=== PATIENT | male | born 1995 | race African-American/Black ===

== ENCOUNTER 2021-11-29 14:43 | Emergency (ER) | payer BC, OTHER ==
[2021-11-29] MEDS ORDERED: CYCLOBENZAPRINE 10 MG TAB ONE (15:42)
[2021-11-29] MEDS ORDERED: IBUPROFEN 400 MG TAB ONE (15:42)
--- NOTE | 2021-11-29 16:28 | RAD REPORT ---
EXAM DESCRIPTION: Tony Single View11/29/2021 4:03 pm CLINICAL HISTORY: Chest pain COMPARISON: none FINDINGS: Patient is in a poor degree of inspiration The lungs appear clear of acute infiltrate. The heart is normal size IMPRESSION: No acute abnormalities displayed
--- NOTE | 2021-11-29 16:50 | ER ---
Nurse's Notes [facility] Name: Herb Bang Age: 26 yrs Sex: Male : 1995 Arrival Date: 11/29/2021 Time: 14:45 Bed Treatment Private MD: Alex Boswell Diagnosis: Strain of muscle and tendon of unspecified wall of thorax Presentation: 11/29 14:58 Chief complaint: Patient states: "I WAS LIFTING WEIGHTS AND THINK I PULLED SOMETHING IN [facility] MY RIGHT CHEST AN HOUR AGO". Coronavirus screen: Vaccine status: Patient reports receiving the 2nd dose of the covid vaccine. Client denies travel out of the [place] in the last 14 days. At this time, the client does not indicate any symptoms associated with coronavirus-19. Ebola Screen: Patient negative for fever greater than or equal to 101.5 degrees Fahrenheit, and additional compatible Ebola Virus Disease symptoms. Initial Sepsis Screen: Does the patient meet any 2 criteria? No. Patient's initial sepsis screen is negative. Does the patient have a suspected source of infection? No. Patient's initial sepsis screen is negative. Risk Assessment: Do you want to hurt yourself or someone else? Patient reports no desire to harm self or others. Onset of symptoms was November 29, 2021 at 12:00. 14:58 Method Of Arrival: Ambulatory [facility] 14:58 Acuity: OBDULIA 4 [facility] Triage Assessment: 15:00 General: Appears uncomfortable, Behavior is calm, cooperative, appropriate for age. [facility] Pain: Complains of pain in anterior aspect of right upper chest and right breast Pain does not radiate. Pain currently is 9 out of 10 on a pain scale. Quality of pain is described as pressure, Pain began 1 hour ago. Historical: - Allergies: 15:00 NKDA; 1 - Home Meds: 15:00 None [Active]; bh1 - PMHx: 15:00 None; bh1 - PSHx: 15:00 None; 1 - Immunization history:: Adult Immunizations up to date. - Social history:: Smoking status: Patient denies any tobacco usage or history of. Screenin:37 Abuse screen: Denies threats or abuse. Denies injuries from another. Nutritional jg9 screening: No deficits noted. Tuberculosis screening: No symptoms or risk factors identified. Fall Risk None identified. Assessment: 15:37 Reassessment: No changes from previously documented assessment. Patient and/or family jg9 updated on plan of care and expected duration. Pain level reassessed. Patient is alert, oriented x 3, equal unlabored respirations, skin warm/dry/pink. 17:00 Reassessment: No changes from previously documented assessment. Patient and/or family jg9 updated on plan of care and expected duration. Pain level reassessed. Patient is alert, oriented x 3, equal unlabored respirations, skin warm/dry/pink. Vital Signs: 14:58 BP 134 / 89; Pulse 95; Resp 18; Temp 97.4(T); Pulse Ox 99% on R/A; Weight 117.93 kg; 1 Height 5 ft. 7 in. (170.18 cm); Pain 9/10; 17:00 BP 140 / 90; Pulse 97; Resp 16; Pulse Ox 99% on R/A; Pain 7/10; jg9 14:58 Body Mass Index 40.72 (117.93 kg, 170.18 cm) [facility] ED Course: 14:45 Patient arrived in ED. as 14:45 Alex Boswell MD is Private Physician. as 14:57 Cora Jean-Baptiste F[facility]-C [facility] kb 14:57 Juan Carlos Michaels MD is Attending Physician. kb 14:59 Triage completed. 1 15:01 Arm band placed on left wrist. 1 15:38 Patient has correct armband on for positive identification. Bed in low position. Call jg9 light in reach. 16:05 Chest Single View XRAY In Process Unspecified. EDMS 17:00 No apparent distress. Resting quietly. Awaiting radiology results. jg9 17:14 Camille Lobato, RN is Primary Nurse. jg9 17:15 No provider procedures requiring assistance completed. jg9 17:16 Patient did not have IV access during this emergency room visit. jg9 Administered Medications: 15:37 Drug: Ibuprofen 800 mg Route: PO; jg9 16:30 Follow up: Response: No adverse reaction; Pain is unchanged, physician notified jg9 15:37 Drug: Flexeril (cyclobenzaprine) 10 mg Route: PO; jg9 16:30 Follow up: Response: No adverse reaction; Pain is unchanged, physician notified jg9 Medication: 17:16 VIS not applicable for this client. jg9 Outcome: 16:50 Discharge ordered by MD. bernal 17:16 Discharged to home ambulatory. jg9 17:16 Condition: stable 17:16 Discharge instructions given to patient, Instructed on discharge instructions, follow up and referral plans. Demonstrated understanding of instructions, follow-up care, medications, Prescriptions given X 2. 17:16 Patient left the ED. jg9 Signatures: Dispatcher [employer] EDKS Cora Jean-Baptiste, SHANK PAPERER-C SHANK PAPERER-Nilda Frank Jennifer, RN RN jg9 Rukhsana Low RN RN bh1
--- NOTE | 2021-11-29 16:50 | EDPHYS ---
Physician Documentation [facility] Name: Herb Bang Age: 26 yrs Sex: Male : 1995 Arrival Date: 11/29/2021 Time: 14:45 Bed Treatment Private MD: Alex Boswell ED Physician Juan Carlos Michaels HPI: 11/29 20:18 This 26 yrs old Black Male presents to ER via Ambulatory with complaints of Shoulder kb Pain. 20:18 Context: The problem was sustained at home. Onset: The symptoms/episode began/occurred kb today. Modifying factors: the symptoms are alleviated by nothing. The symptoms are aggravated by movement. Associated signs and symptoms: Pertinent positives: chest pain, Pertinent negatives: abdominal pain, diaphoresis, dyspnea, neck pain, tingling. Severity of symptoms: At their worst the symptoms were moderate, in the emergency department the symptoms are unchanged. Treatment prior to arrival includes: tylenol. The patient has not experienced similar symptoms in the past. The patient has not recently seen a physician. Pt reports he was lifting some heavy weights and felt something tear in his right upper chest, then it started swelling. Reports decreased ROM of right shoulder due to pain in right chest. Historical: - Allergies: 15:00 NKDA; bh1 - Home Meds: 15:00 None [Active]; bh1 - PMHx: 15:00 None; bh1 - PSHx: 15:00 None; bh1 - Immunization history:: Adult Immunizations up to date. - Social history:: Smoking status: Patient denies any tobacco usage or history of. ROS: 20:16 Constitutional: Negative for fever, chills, and weight loss. kb 20:16 MS/extremity: Positive for pain, swelling, tenderness, of the anterior aspect of right upper chest. 20:16 All other systems are negative. Exam: 20:16 Constitutional: This is a well developed, well nourished patient who is awake, alert, kb and in no acute distress. Head/Face: Normocephalic, atraumatic. ENT: Moist Mucous membranes Cardiovascular: Regular rate and rhythm with a normal S1 and S2. No gallops, murmurs, or rubs. No pulse deficits. Respiratory: Respirations even and unlabored. No increased work of breathing. Talking in full sentences Abdomen/GI: Soft, non-tender. No distention Skin: Warm, dry with normal turgor. Normal color. Neuro: Awake and alert, GCS 15, oriented to person, place, time, and situation. Moves all extremities. Normal gait. Psych: Awake, alert, with orientation to person, place and time. Behavior, mood, and affect are within normal limits. 20:16 Chest/axilla: Inspection: normal, Palpation: tenderness, that is moderate, of the anterior aspect of right upper chest, that totally reproduces the patient's complaints. 20:16 Musculoskeletal/extremity: Extremities: grossly normal except: noted in the anterior aspect of right shoulder: decreased ROM, ROM: limited active range of motion due to pain, Circulation is intact in all extremities. Sensation intact. Vital Signs: 14:58 BP 134 / 89; Pulse 95; Resp 18; Temp 97.4(T); Pulse Ox 99% on R/A; Weight 117.93 kg; 1 Height 5 ft. 7 in. (170.18 cm); Pain 9/10; 17:00 BP 140 / 90; Pulse 97; Resp 16; Pulse Ox 99% on R/A; Pain 7/10; jg9 14:58 Body Mass Index 40.72 (117.93 kg, 170.18 cm) [facility] MDM: 15:11 Patient medically screened. kb 20:18 Data reviewed: vital signs, nurses notes. Data interpreted: Pulse oximetry: on room air kb is 99 %. Interpretation: normal. Counseling: I had a detailed discussion with the patient and/or guardian regarding: the historical points, exam findings, and any diagnostic results supporting the discharge/admit diagnosis, radiology results, the need for outpatient follow up, a orthopedic surgeon, to return to the emergency department if symptoms worsen or persist or if there are any questions or concerns that arise at home. 11/29 15:11 Order name: Chest Single View XRAY; Complete Time: 16:31 kb Administered Medications: 15:37 Drug: Ibuprofen 800 mg Route: PO; jg9 16:30 Follow up: Response: No adverse reaction; Pain is unchanged, physician notified jg9 15:37 Drug: Flexeril (cyclobenzaprine) 10 mg Route: PO; jg9 16:30 Follow up: Response: No adverse reaction; Pain is unchanged, physician notified jg9 Disposition: 11/30 08:24 Co-signature as Attending Physician, Juan Carlos Michaels MD. rn Disposition Summary: 11/29/21 16:50 Discharge Ordered Location: Home Condition: Stable kb Diagnosis - Strain of muscle and tendon of unspecified wall of thorax kb Followup: kb - With: Emergency Department - When: As needed - Reason: Worsening of condition Followup: kb - With: Private Physician - When: 2 - 3 days - Reason: Recheck today's complaints, Continuance of care, Re-evaluation by your physician Discharge Instructions: - Discharge Summary Sheet kb - Muscle Strain, [id number] kb Forms: - Medication Reconciliation Form kb - Thank You Letter kb - Antibiotic Education kb - Prescription Opioid Use kb Prescriptions: - Cyclobenzaprine 10 mg Oral Tablet - take 1 tablet by ORAL route every 8 hours As needed; 15 tablet; Refills: 0, kb Product Selection Permitted - Diclofenac Sodium 75 mg Oral tablet,delayed release (DR/EC) - take 1 tablet by ORAL route 2 times per day As needed; 30 tablet; Refills: 0, kb Product Selection Permitted Signatures: Dispatcher [employer] EDCora Stratton, OCEAN LIFEGUARD SPECIALIST-C OCEAN LIFEGUARD SPECIALIST-Ckb Juan Carlos Michaels MD MD rn Gilmore, Jennifer RN RN jg9 Rukhsana Low RN RN bh1
[2021-11-29 17:21] VITALS: TEMP 97.4; O2SAT 99
[2021-11-29 17:23] VITALS: BP 140/90
== END 2021-11-29 17:16 | disposition home or self-care (01) ==
LOC: ER 14:43
DX: S29.011A Strain of muscle and tendon of front wall of thorax, initial encounter (principal)
CPT/HCPCS: 71045; 99283

== ENCOUNTER 2022-10-29 20:31 | Inpatient (IN) | payer OTHER, SELFPAY ==
--- OUTSIDE RECORDS SUMMARY | 2022-10-29 20:35 | XMS REPORT | Continuity of Care Document ---
:1995 Author Organization [facility] t Address [address] [place] [address] Care Team Providers Name Role Phone Kait LEVIN, Alexandra Green Attending Clinician Unavailable Micaela Zavala Attending Clinician Lab, Adc Fam Pob I Attending Clinician Unavailable Doctor Unassigned, Emerald Attending Clinician Unavailable Payers Payer Name Policy Type Policy Number Effective Date Expiration Date S ource Problems Condition Condition Condition Status Onset Resolution Last Treating Co mments Source Name Details Category Date Date Treatment Clinician Date No known No known Disease Unive rs active active ity of problems problems [facility] Allergies, Adverse Reactions, Alerts Allergy Allergy Status Severity Reaction(s) Onset Inactive Treating Comm ents Source Name Type Date Date Clinician NO KNOWN Drug Active Univers ALLERGIE Class ity of [facility] Social History Social Habit Start Date Stop Date Quantity Comments Source [facility] to SARS-[facility]2 Not sure [facility] [place] [facility] Smoking Status Start Date Stop Date Source Never smoker [facility] Medications Ordered Filled Start Stop Current Ordering Indication Dosage Frequency Signature Comments Components Source Medication Medication Date Date Medication? Clinician (SIG) Name Name No known [facility] No known No Univers medications [facility] No known No Univers medications [facility] Procedures This patient has no known procedures. Encounters Start End Encounter Admission Attending Care Care Encounter Source Date/Time Date/Time Type Type Clinicians Facility Department ID 2020-01-22 2020-01-22 Letter KWAME Carballo [id number] Univers 00:00:00 00:00:00 (Out) Alexandra TOTH [id number] it y of HOSPITAL [id number] Owsald as [phone] [address] 2020-01-20 2020-01-20 Telephone AnandKWAME [id number] Univers 00:00:00 00:00:00 Micaela TOTH [id number] it y of [facility] [id number] Oswald as [phone] [address] 2020-01-19 2020-01-19 Laboratory Lab, Adc Fam Pob I [facility] [id number] Univers 13:12:42 13:32:42 Only Anand Micaeladomingo Parrish [id number] ity [facility] [id number] Oswald as Profcarlaio [phone] [address] Office [address] 2020-01-19 2020-01-19 Outpatient R [facility] [id number] Univers 13:00:00 13:00:00 ity of [facility] 2020-01-19 2020-01-19 Letter Doctor KWAME [id number] Univers 00:00:00 00:00:00 (Out) Unassigned, NAVNEET [id number] ity of Emerald [facility] [id number] Oswald as [phone] [address] Results This patient has no known results.
[2022-10-29 21:12] LABS: Absolute Lymphocytes (CBC) 1.7 K/uL (0.7-4.9); Hematocrit 43.1 % (39.6-49.0); Lymphocytes % 14.8 % (15.3-44.8); MCV 88.3 fL (80-100); MPV 8.7 fL (7.6-11.3); RBC Red Blood Cell Count 4.88 M/uL (4.33-5.43)
[2022-10-29] MEDS ORDERED: Ringers Lactate 1,000 ML IV ONE (21:13)
[2022-10-29 21:46] LABS: Albumin 4.5 g/dL (3.4-5.0); Bilirubin Total 0.5 mg/dL (0.2-1.0); Potassium 4.4 mEq/L (3.5-5.1); Protein, Total 8.7 g/dL (6.4-8.2)
[2022-10-29 22:11] LABS: Specific Gravity 1.021 (1.005-1.030); Urine Bacteria <20 /HPF (<20); Urine Bilirubin NEGATIVE (Negative); Urine Blood Negative (Negative); Urine Clarity Extremely Turbid (Clear); Urine Color Yellow (Yellow); Urine Glucose NEGATIVE (Negative); Urine Mucus Slight /HPF (None Seen); Urine Protein 2+ (Negative); Urine RBC <5 /HPF (None Seen); Urine Urobilinogen Normal (Normal); Urine pH 6.5 (5.0-7.0)
--- NOTE | 2022-10-29 22:29 | ER ---
Nurse's Notes [facility] Name: Herb Bang Age: 27 yrs Sex: Male : 1995 Arrival Date: 10/29/2022 Time: 20:31 Bed 13 Private MD: Diagnosis: Dehydration, rhabdomyolysis, prerenal SUSAN, hyponatremia, heat exhaustion Presentation: 10/29 20:35 Chief complaint: EMS states: 27 year old male had a heavy work out at the gym this ha1 morning, and did a lot of work around the house too. Later this afternoon he started to feel like he got over headed, dizzy, and weak. 20:35 Coronavirus screen: Vaccine status: Patient reports being unvaccinated. Ebola Screen: ha1 No symptoms or risks identified at this time. Initial Sepsis Screen: Does the patient meet any 2 criteria? No. Patient's initial sepsis screen is negative. Does the patient have a suspected source of infection? No. Patient's initial sepsis screen is negative. Risk Assessment: Do you want to hurt yourself or someone else? Patient reports no desire to harm self or others. Onset of symptoms was October 29, 2022. 20:35 Method Of Arrival: EMS: [facility] ha1 20:35 Acuity: OBDULIA 3 ha1 Triage Assessment: 20:35 General: Appears uncomfortable, Behavior is calm, cooperative. Pain: Complains of pain ha1 in left side of upper abdomen Pain currently is 8 out of 10 on a pain scale. Quality of pain is described as crampy. Neuro: Level of Consciousness is awake, alert, obeys commands, Oriented to person, place, time, situation. Neuro: Reports dizziness, weakness. Cardiovascular: Patient's skin is warm and dry. Respiratory: Airway is patent Respiratory effort is even, unlabored, Respiratory pattern is regular, symmetrical. GI: No signs and/or symptoms were reported involving the gastrointestinal system. : No signs and/or symptoms were reported regarding the genitourinary system. Derm: Skin is moist, Skin is normal. Musculoskeletal: Circulation, motion, and sensation intact. Range of motion: intact in all extremities. Historical: - Allergies: 21:22 NKDA; ha1 - Home Meds: 21:22 losartan oral [Active]; ha1 - PMHx: 21:22 Hypertensive disorder; ha1 - Immunization history:: Adult Immunizations up to date. - Social history:: Smoking status: Patient denies any tobacco usage or history of. Screenin:35 [facility] ED Fall Risk Assessment (Adult) History of falling in the last 3 months, ha1 including since admission No falls in past 3 months (0 pts) Confusion or Disorientation No (0 pts) Intoxicated or Sedated No (0 pts) Impaired Gait No (0 pts) Mobility Assist Device Used No (0 pt) Altered Elimination No (0 pt) Score/Fall Risk Level 0 - 2 = Low Risk Oriented to surroundings, Maintained a safe environment, Educated pt \T\ family on fall prevention, incl call for assistance when getting out of bed. 21:27 Abuse screen: Denies threats or abuse. Denies injuries from another. Nutritional ha1 screening: No deficits noted. Tuberculosis screening: No symptoms or risk factors identified. Assessment: 20:35 Reassessment: see triage assessment. ha1 21:26 Reassessment: Patient and/or family updated on plan of care and expected duration. Pain ha1 level reassessed. Patient is alert, oriented x 3, equal unlabored respirations, skin warm/dry/pink. 22:30 Reassessment: Patient and/or family updated on plan of care and expected duration. Pain ha1 level reassessed. Patient is alert, oriented x 3, equal unlabored respirations, skin warm/dry/pink. 23:30 Reassessment: Patient and/or family updated on plan of care and expected duration. Pain ha1 level reassessed. Patient is alert, oriented x 3, equal unlabored respirations, skin warm/dry/pink. 10/30 00:30 Reassessment: Patient and/or family updated on plan of care and expected duration. Pain ha1 level reassessed. Patient is alert, oriented x 3, equal unlabored respirations, skin warm/dry/pink. Vital Signs: 10/29 20:35 BP 130 / 52; Pulse 73; Resp 18 S; Temp 97.9; Pulse Ox 99% ; Weight 108.86 kg; Height 5 ha1 ft. 7 in. ; Pain 8/10; 21:30 BP 132 / 77; Pulse 70; Resp 16 S; Pulse Ox 100% on R/A; ha1 22:30 BP 142 / 89; Pulse 70; Resp 16 S; Pulse Ox 100% on R/A; ha1 23:30 BP 142 / 83; Pulse 84; Resp 18 S; Pulse Ox 100% on R/A; ha1 20:35 Body Mass Index 37.59 (108.86 kg, 170.18 cm) ha1 20:35 Pain Scale: Adult ha1 ED Course: 20:35 Patient arrived in ED. em1 20:35 Patient has correct armband on for positive identification. Placed in gown. Bed in low ha1 position. Call light in reach. Side rails up X 1. Adult w/ patient. 20:35 Arm band placed on. ha1 20:43 Trae Ellis MD is Attending Physician. sp3 20:54 Mandi Chandler RN is Primary Nurse. ha1 21:05 Maintain EMS IV. Dressing intact. Good blood return noted. Site clean \T\ dry. Gauge \T\ montero 1 site: 20 right AC. 21:12 CBC with Diff Sent. ha1 21:12 CMP Sent. ha1 21:22 Triage completed. ha1 22:27 Marlo Morillo MD is Hospitalizing Provider. sp3 10/30 01:00 No provider procedures requiring assistance completed. ha1 01:00 Patient admitted, IV remains in place. ha1 Administered Medications: 10/29 21:12 Drug: Lactated Ringers Solution IV 1000 ml Route: IV; Rate: 1000 ml/hr; Site: right ha1 antecubital; 10/30 06:53 Follow up: Response: No adverse reaction; IV Status: Completed infusion; IV Intake: ha1 1000ml 10/29 23:15 Drug: NS 0.9% IV 1000 ml Route: IV; Rate: 1000 ml; Site: right antecubital; 1 10/30 06:52 Follow up: Response: No adverse reaction; IV Status: Completed infusion; IV Intake: ha1 1000ml 10/29 23:15 Drug: NS 0.9% IV 1000 ml Route: IV; Rate: 200 ml/hr; Site: right antecubital; 1 10/30 06:52 Follow up: Response: No adverse reaction; IV Status: Completed infusion; IV Intake: ha1 1000ml Medication: 01:00 VIS not applicable for this client. ha1 Intake: 06:52 IV: 1000ml; Total: 1000ml. ha1 06:52 IV: 1000ml; Total: 2000ml. ha1 06:53 IV: 1000ml; Total: 3000ml. ha1 Outcome: 10/29 22:28 Decision to Hospitalize by Provider. sp3 10/30 01:00 Condition: stable ha1 01:00 Admitted to ER Hold. Please see [facility] for further documentation. ha1 01:00 Discharge instructions given to patient, family, Instructed on the need for admit, Demonstrated understanding of instructions. 15:43 Patient left the ED. ko1 Signatures: Basil Valverde em1 Trae Ellis MD MD sp3 Mandi Chandler, RN RN ha1 Mireille Mishra, RN RN ko1
--- NOTE | 2022-10-29 22:29 | EDPHYS ---
Physician Documentation [facility] Name: Herb Bang Age: 27 yrs Sex: Male : 1995 Arrival Date: 10/29/2022 Time: 20:31 Bed 13 Private MD: ED Physician Trae Ellis HPI: 10/29 21:05 This 27 yrs old Black Male presents to ER via Unassigned with complaints of heat sp3 exhaustion and near syncope. 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 1 p.o. intake of lunch that occurred approximately 10 hours prior to arrival. EMS gave normal saline in route and patient is already improved in terms of his symptoms. He had 1 episode of near syncope without full syncope without any other prodrome symptoms. He denied and currently denies headache, neck pain, chest pain, shortness of breath, back pain, abdominal pain, palpitations, vomiting, diarrhea, rash, known sick contacts, travel history, or any other signs or symptoms on ROS at this time.. Historical: - Allergies: 21:22 NKDA; ha1 - Home Meds: 21:22 losartan oral [Active]; ha1 - PMHx: 21:22 Hypertensive disorder; ha1 - Immunization history:: Adult Immunizations up to date. - Social history:: Smoking status: Patient denies any tobacco usage or history of. ROS: 21:06 Constitutional: Negative for fever, chills, and weight loss, Eyes: Negative for injury, sp3 pain, redness, and discharge, ENT: Negative for injury, pain, and discharge, Neck: Negative for injury, pain, and swelling, Cardiovascular: Negative for chest pain, palpitations, and edema, Respiratory: Negative for shortness of breath, cough, wheezing, and pleuritic chest pain, Abdomen/GI: Negative for abdominal pain, nausea, vomiting, diarrhea, and constipation, Back: Negative for injury and pain, MS/Extremity: Negative for injury and deformity, Neuro: Negative for headache, weakness, numbness, tingling, and seizure, Psych: Negative for depression, anxiety, suicide ideation, homicidal ideation, and hallucinations, Allergy/Immunology: Negative for hives, rash, and allergies, Endocrine: Negative for neck swelling, polydipsia, polyuria, polyphagia, and marked weight changes. 21:06 All other systems are negative. Exam: 21:07 Constitutional: This is a well developed, well nourished patient who is awake, alert, sp3 and in no acute distress. Head/Face: Normocephalic, atraumatic. Eyes: Pupils equal round and reactive to light, extra-ocular motions intact. Lids and lashes normal. Conjunctiva and sclera are non-icteric and not injected. Cornea within normal limits. Periorbital areas with no swelling, redness, or edema. ENT: Nares patent. No nasal discharge, no septal abnormalities noted. External auditory canals are clear. Oropharynx with no redness, swelling, or masses, exudates, or evidence of obstruction, uvula midline. Mucous membranes moist. Neck: Trachea midline, no thyromegaly or masses palpated, and no cervical lymphadenopathy. Supple, full range of motion without nuchal rigidity, or vertebral point tenderness. No Meningismus. Chest/axilla: Normal chest wall appearance and motion. Nontender with no deformity. No lesions are appreciated. Cardiovascular: Regular rate and rhythm with a normal S1 and S2. No gallops, murmurs, or rubs. Normal PMI, no JVD. No pulse deficits. Respiratory: Lungs have equal breath sounds bilaterally, clear to auscultation and percussion. No rales, rhonchi or wheezes noted. No increased work of breathing, no retractions or nasal flaring. Abdomen/GI: Soft, non-tender, with normal bowel sounds. No distension or tympany. No guarding or rebound. No evidence of tenderness throughout. Back: No spinal tenderness. No costovertebral tenderness. Full range of motion. Skin: Warm, dry with normal turgor. Normal color with no rashes, no lesions, and no evidence of cellulitis. MS/ Extremity: Pulses equal, no cyanosis. Neurovascular intact. Full, normal range of motion. Neuro: Awake and alert, GCS 15, oriented to person, place, time, and situation. Cranial nerves II-XII grossly intact. Motor strength 5/5 in all extremities. Sensory grossly intact. Cerebellar exam normal. Normal gait. Psych: Awake, alert, with orientation to person, place and time. Behavior, mood, and affect are within normal limits. Vital Signs: 20:35 BP 130 / 52; Pulse 73; Resp 18 S; Temp 97.9; Pulse Ox 99% ; Weight 108.86 kg; Height 5 ha1 ft. 7 in. ; Pain 8/10; 21:30 BP 132 / 77; Pulse 70; Resp 16 S; Pulse Ox 100% on R/A; ha1 22:30 BP 142 / 89; Pulse 70; Resp 16 S; Pulse Ox 100% on R/A; ha1 23:30 BP 142 / 83; Pulse 84; Resp 18 S; Pulse Ox 100% on R/A; ha1 20:35 Body Mass Index 37.59 (108.86 kg, 170.18 cm) ha1 20:35 Pain Scale: Adult ha1 MDM: 20:51 Patient medically screened. sp3 21:07 Data reviewed: vital signs, nurses notes, EMS record, lab test result(s), EKG. ED sp3 course: 27-year-old male with likely heat exhaustion related syndrome. I am not highly suspicious for heatstroke, acute coronary syndrome, neurological event including TIA/CVA, shock event, we other critical findings at this time. Consider mild rhabdomyolysis and electrolyte abnormalities. Will obtain laboratory values including CK and electrolytes, EKG and administer lactated Ringer's 1 L bolus. Likely discharge home if patient is improved and work-up is negative or easily corrected.. 22:26 ED course: Patient with hyponatremia at 132, elevated renal function at 2.5, and sp3 elevated CPK. All of this is likely prerenal and dehydration which we will continue IV fluids overnight in observation for likely disposition tomorrow. Patient is feeling better after initial lactated Ringer's.. 10/29 20:52 Order name: CBC with Diff; Complete Time: 21:45 sp3 10/29 20:52 Order name: CMP; Complete Time: 22:21 sp3 10/29 20:52 Order name: Urinalysis w/ reflexes; Complete Time: 22:21 sp3 10/29 20:52 Order name: CK; Complete Time: 22:21 sp3 10/29 20:52 Order name: Lactate w/ 2H reflex if indic.; Complete Time: 21:45 sp3 10/30 02:41 Order name: CBC with Automated Diff EDMS 10/30 03:23 Order name: Comprehensive Metabolic Panel EDWA 10/30 03:23 Order name: Creatine Phosphokinase EDWA 10/30 08:47 Order name: US EDWA 10/29 20:52 Order name: IV Saline Lock; Complete Time: 20:55 sp3 10/29 20:52 Order name: Labs collected and sent; Complete Time: 21:20 sp3 10/29 20:52 Order name: EKG - Nurse/Tech; Complete Time: 21:45 sp3 Administered Medications: 21:12 Drug: Lactated Ringers Solution IV 1000 ml Route: IV; Rate: 1000 ml/hr; [facility]; 10/30 06:53 Follow up: Response: No adverse reaction; IV Status: Completed infusion; IV Intake: ha1 1000ml 10/29 23:15 Drug: NS 0.9% IV 1000 ml Route: IV; Rate: 1000 ml; Site: right antecubital; [facility] 10/30 06:52 Follow up: Response: No adverse reaction; IV Status: Completed infusion; IV Intake: ha1 1000ml 10/29 23:15 Drug: NS 0.9% IV 1000 ml Route: IV; Rate: 200 ml/hr; Site: right [facility]cubital; [facility] 10/30 06:52 Follow up: Response: No adverse reaction; IV Status: Completed infusion; IV Intake: ha1 1000ml Disposition Summary: 10/29/22 22:28 Hospitalization Ordered Hospitalization Status: Observation sp3 Provider: Marlo Morillo spKain Condition: Stable sp3 Problem: new sp3 Symptoms: have improved sp3 Bed/Room Type: Standard sp3 Location: Telemetry/MedSurg (observation)(10/30/22 15:04) eb Room Assignment: [facility](10/30/22 15:04) eb Diagnosis - Dehydration, rhabdomyolysis, prerenal SUSAN, hyponatremia, heat exhaustion sp3 Forms: - Medication Reconciliation Form sp3 - SBAR form sp3 Signatures: Dispatcher [employer] EDWA Mathieu Madrid ds4 Miguel A Galvan, HOSPITALIST NOCTURNIST PHYSICIAN-C HOSPITALIST NOCTURNIST PHYSICIAN-Cla1 Jessica Ward Setul, MD MD sp3 Mandi Chandler RN RN ha1 Corrections: (The following items were deleted from the chart) 10/29 22:52 22:28 Telemetry/MedSurg (observation) sp3 ds4 22:52 22:28 sp3 ds4 10/30 15:04 10/29 22:52 [facility] ER [facility] ds4 eb 10/30 15:04 10/29 22:52 ERHOLD- ds4 eb
--- NOTE | 2022-10-29 22:57 | P.HP ---
Certification for Inpatient Patient admitted to: Inpatient With expected LOS: <2 Midnights Patient will require the following post-hospital care: None Practitioner: I am a practitioner with admitting privileges, knowledge of patient current condition, hospital course, and medical plan of care. Services: Services provided to patient in accordance with Admission requirements found in Title 42 Section 412.3 of the Code of Federal Regulations Patient History Date of Service: 10/29/22 Reason for admission: Rhabdomyolysis History of Present Illness: 27-year-old male with history of hypertension who takes losartan at home presents emergency department with chief complaint of heat exhaustion, cramps, dizziness/lightheadedness. He reports that throughout the day today he overexerted himself helping his brother move, taking care of horses etc. He reports not drinking very much water throughout the day he became lightheaded/dizzy as well as having significant muscle cramps. He came to the ER for evaluation his labs were significant for acute kidney injury with a creatinine of 2.44 sodium 132 CPK 1042. No previous renal issues the patient is aware of. We will need to admit for rhabdomyolysis. 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 moist/pink, EOMI, Sclerae nonicteric Neck: Supple, 2+ carotid pulse no bruit, No LAD, Without JVD or thyroid abnormality Respiratory: Clear to auscultation bilaterally, Normal air movement Cardiovascular: Regular rate/rhythm, Normal S1 S2 Gastrointestinal: Normal bowel sounds, No tenderness Musculoskeletal: No tenderness Integumentary: No rashes Neurological: Normal gait, Normal speech, Normal strength at 5/5 x4 extr, Normal tone, Normal affect Lymphatics: No axilla or inguinal lymphadenopathy - Studies Laboratory Data (last 24 hrs) 10/29/22 21:01: Sodium 132 L, Potassium 4.4, BUN 21 H, Creatinine 2.44 H, Glucose 76, Total Bilirubin 0.5, AST 39 H, ALT 52, Alkaline Phosphatase 71 10/29/22 21:01: WBC 11.80 H, Hgb 14.2, Hct 43.1, Plt Count 285 Assessment and Plan - Plan Assessment: SUSAN/rhabdomyolysis Hypertension Plan: SUSAN/rhabdomyolysis Continue aggressive IV fluids, recheck CPK in the morning. Renal ultrasound ordered. Hypertension Hold losartan in setting of SUSAN. DVT PPX: Heparin subcu Code status: Full Discharge Plan: Home Plan to discharge in: 48 Hours - Advance Directives Does patient have a Living Will: No Does patient have a Durable POA for Healthcare: No - Code Status/Comfort Care Code Status Assessed: Yes (Full code) Critical Care: No Time Spent Managing Pts Care (In Minutes): 55
[2022-10-29] MEDS ORDERED: NA CHLORIDE 0.9% 2,000 ML ONE (23:16)
[2022-10-30] MEDS ORDERED: ACETAMINOPHEN 500 MG TAB PO PRN (00:34)
[2022-10-30] MEDS ORDERED: ONDANSETRON 4 MG/2 ML VIAL IV PRN (00:34)
[2022-10-30] MEDS: NA CHLORIDE 0.9% 1,000 ML IV SCH ×5 (00:34→21:25)
[2022-10-30 02:41] LABS: Absolute Lymphocytes (CBC) 1.7 K/uL (0.7-4.9); Hematocrit 41.4 % (39.6-49.0); Lymphocytes % 17.3 % (15.3-44.8); MCV 88.5 fL (80-100); MPV 9.6 fL (7.6-11.3); RBC Red Blood Cell Count 4.67 M/uL (4.33-5.43)
[2022-10-30 02:57] LABS: Albumin 3.7 g/dL (3.4-5.0); Bilirubin Total 0.3 mg/dL (0.2-1.0); Protein, Total 7.6 g/dL (6.4-8.2)
[2022-10-30 04:46] VITALS: BMI 37.5
[2022-10-30] MEDS ORDERED: NA CHLORIDE 0.9% 1,000 ML ONE (05:53)
--- NOTE | 2022-10-30 08:45 | RAD REPORT ---
EXAM DESCRIPTION: US - Renal Ultrasound-Complete - 10/30/2022 1:10 am CLINICAL HISTORY: cecilio Flank pain COMPARISON: No comparisons FINDINGS: Both kidneys are normal in size, shape and echotexture. The right kidney measures 11.4 x 5.7 x 5.3 cm. No hydronephrosis, focal mass or perinephric fluid. The left kidney measures 11.7 x 6.9 x 5.5 cm. No hydronephrosis, focal mass or perinephric fluid. The urinary bladder is incompletely distended without gross abnormality seen. IMPRESSION: Unremarkable renal sonogram.
[2022-10-30] MEDS: HEPARIN 5000 UNIT/ML 1 ML VIAL SQ SCH ×2 (09:00→21:25)
--- NOTE | 2022-10-30 14:39 | P.PN ---
Subjective Date of Service: 10/30/22 Chief Complaint: Rhabdomyolysis No acute events since admission. His renal function and urine output is improving. He reports mild generalized myalgias. He denies any chest pain, palpitations, or shortness of breath. Review of Systems 10-point ROS is otherwise unremarkable Musculoskeletal: Other (generalized myalgias) Physical Examination - Vital Signs Temperature: 97.9 F Blood Pressure: 142/78 Pulse: 82 Respirations: 18 Pulse Ox (%): 99 - Physical Exam General: Alert, In no apparent distress, Oriented x3 HEENT: Atraumatic, Other (mucous membranes dry), Sclerae nonicteric Neck: JVD not distended Respiratory: Clear to auscultation bilaterally, Normal air movement Cardiovascular: No edema, Regular rate/rhythm, Normal S1 S2, No gallops, No rubs, No murmurs Gastrointestinal: Normal bowel sounds, Soft and benign, Non-distended, No tenderness, No rebound, No guarding Musculoskeletal: No clubbing Integumentary: No rashes Neurological: Normal speech, Normal affect - Studies Laboratory Data (last 24 hrs) 10/29/22 21:01: Sodium 132 L, Potassium 4.4, BUN 21 H, Creatinine 2.44 H, Glucose 76, Total Bilirubin 0.5, AST 39 H, ALT 52, Alkaline Phosphatase 71 10/29/22 21:01: WBC 11.80 H, Hgb 14.2, Hct 43.1, Plt Count 285 Assessment And Plan - Plan # Acute Kidney Injury secondary to Rhabdomyolysis - Evaluation thus far: - Creatinine = 2.44 -> 1.61 (baseline creatinine unknown) - CK = 1042 -> 907 - Urinalysis = 1+ ketones, >20 hyaline casts, 2+ protein - Renal ultrasound = "unremarkable renal sonogram." - Management plan: - Consulted Nephrology and spoke with Dr. Mancia - recommendations appreciated - Normal Saline @ 200 mL/hr - Monitor creatinine and urine output - Renally dose medications # Hypertension - Hold home losartan given SUSAN # Obesity - BMI 37.6 kg/m2 - Lifestyle modification Marlo Morillo M.D.
--- NOTE | 2022-10-30 14:46 | EKG ---
Test Date: 2022-10-29 Test Time: 21:39:20 Instrument Repair Specialist: LARRY MEASUREMENT RESULTS: Intervals: Rate: 83 UT: 198 QRSD: 98 QT: 376 QTc: 441 [place]: P: 42 UT: 198 QRS: 59 T: 29 INTERPRETIVE STATEMENTS: Normal sinus rhythm Normal ECG No previous ECG available for comparison Electronically Signed On 10-30-22 14:44:24 CDT by Dominic Hinkle
[2022-10-31] MEDS: NA CHLORIDE 0.9% 1,000 ML IV SCH ×2 (03:29→06:34)
[2022-10-31 03:44] LABS: Albumin 3.1 g/dL (3.4-5.0); Bilirubin Total 0.2 mg/dL (0.2-1.0); Potassium 4.1 mEq/L (3.5-5.1); Protein, Total 6.3 g/dL (6.4-8.2)
[2022-10-31] MEDS: HEPARIN 5000 UNIT/ML 1 ML VIAL SQ SCH (08:05)
--- NOTE | 2022-10-31 08:20 | P.DS ---
Admission Date: 10/29/22 Discharge Date: 10/31/22 Disposition: ROUTINE DISCHARGE Discharge Condition: GOOD Reason for Admission: Rhabdomyolysis Consultations: 1. Nephrology Hospital Course: DIAGNOSES: # KDIGO Stage II Acute Kidney Injury secondary to Rhabdomyolysis # Hypertension # Obesity - BMI 37.6 kg/m2 HOSPITAL COURSE: Mr. Herb Bang is a 27 year old male with a past medical history significant for hypertension who was admitted to the [facility] on 10/29/2022 for an acute kidney injury. He was admitted to the Medicine service. Upon further evaluation, he was found to have a creatinine of 2.44 and a creatinine kinase of 1042. His renal ultrasound revealed, "unremarkable renal sonogram." Nephrology was consulted and he was evaluated by Dr. Mancia. He was started on IV fluids and, over the course of the hospitalization, his creatinine and urine output improved significantly. Given his mild hypertension without therapy and his young age, he was extensively counseled that lifestyle modifications including a healthy diet and exercise regimen would be beneficial in managing his blood pressure. He was advised to hold his losartanhydrochlorothiazide at this time. He was advised to maintain a blood pressure journal and follow-up with his PCP. On 10/31/2022, he was seen on morning rounds and deemed medically stable for discharge. He was discharged with instructions to schedule follow-up appointments with his PCP (Dr. Boswell). He was given the opportunity to ask questions and reported no further questions. Furthermore, all questions were answered to the best of my ability. A copy of this discharge summary will be sent to the above providers to facilitate continuity of care. Today, I personally spent 25 minutes on his case, of which greater than 50% of the time was spent in patient education, counseling, and coordination of care as described above. - Physical Exam General: Alert, In no apparent distress, Oriented x3 HEENT: Atraumatic, Mucous membranes moist, Sclerae nonicteric Neck: JVD not distended Respiratory: Clear to auscultation bilaterally, Normal air movement Cardiovascular: No edema, Regular rate/rhythm, No murmurs Gastrointestinal: Normal bowel sounds, Soft, Non-distended, No tenderness Musculoskeletal: No clubbing Integumentary: No rashes Neurological: Normal speech, Normal affect Vital Signs/Physical Exam: Temp Pulse Resp BP Pulse Ox 96.8 F 60 18 133/72 98 10/31/22 04:00 10/31/22 04:00 10/31/22 04:00 10/31/22 04:00 10/31/22 04:00 Laboratory Data at Discharge: WBC 10.10 thou/uL (4.3-10.9) 10/30/22 02:03 Hgb 13.5 g/dL (13.6-17.9) L 10/30/22 02:03 Hct 41.4 % (39.6-49.0) 10/30/22 02:03 Plt Count 278 thou/uL (152-406) 10/30/22 02:03 Sodium 139 mEq/L (136-145) 10/31/22 02:39 Potassium 4.1 mEq/L (3.5-5.1) 10/31/22 02:39 BUN 13 mg/dL (7-18) 10/31/22 02:39 Creatinine 1.04 mg/dL (0.70-1.30) 10/31/22 02:39 Glucose 105 mg/dL (74-106) 10/31/22 02:39 Total Bilirubin 0.2 mg/dL (0.2-1.0) 10/31/22 02:39 AST 34 U/L (15-37) 10/31/22 02:39 ALT 43 U/L (16-61) 10/31/22 02:39 Alkaline Phosphatase 69 U/L (45-117) 10/31/22 02:39 Home Medications: RX: Phentermine HCl 1 tab PO DAILY 10/30/22 Physician Discharge Instructions: 1. Please call and schedule a follow-up appointment with your PCP (Dr. Boswell) in 3-5 days - Please stop taking your losartanhydrochlorothiazide - Please check your blood pressure 2 times per day and keep it in a journal. Please bring this to your appointment with your PCP. - As we discussed, maintaining a healthy lifestyle with diet and exercise is crucial to weight loss (and likely improvement in your blood pressure) Diet: AHA Activity: Ad dylan Followup: Alex Boswell MD [ACTIVE - CAN ADMIT] - Time spent managing pt's care (in minutes): 20
[2022-10-31 08:47] VITALS: BP 142/80; TEMP 97.1
[2022-10-31 10:43] VITALS: O2SAT 98
== END 2022-10-31 09:23 | disposition home or self-care (01) | DRG 683 ==
LOC: ER 20:31 → ERHOLD 22:49 → 2ND 10-30 15:20
PROVIDERS: ADMIT Internal Medicine; ATTEND Internal Medicine
DX: N17.9 Acute kidney failure, unspecified (principal); M62.82 Rhabdomyolysis; I10 Essential (primary) hypertension; E66.9 Obesity, unspecified; Z68.37 Body mass index [BMI] 37.0-37.9, adult
CPT/HCPCS: 36415; 76770; 80053; 81001; 82550; 83605; 85025; 93005; 96360; 96361; 99285; J1644; J7030; J7120

== ENCOUNTER 2024-06-02 12:28 | Emergency (ER) | payer OTHER ==
--- NOTE | 2024-06-02 14:02 | RAD REPORT ---
EXAMINATION: ONE VIEW CHEST XR CLINICAL INDICATION: Male, 28 years old.,CHEST PAIN TECHNIQUE: Frontal chest projection is submitted. Examination is limited by patient positioning and t echnique. COMPARISON: 11/29/2021 FINDINGS: The lungs are well inflated and clear. No pneumothorax or sizable effusion. The heart is normal in s ize. Mediastinal contours are unremarkable. IMPRESSION: No acute intrathoracic abnormalities.
--- NOTE | 2024-06-02 14:21 | EDPHYS ---
Physician Documentation [facility] Name: Herb Bang Age: 28 yrs Sex: Male : 1995 Arrival Date: 06/02/2024 Time: 12:28 Bed 11 Private MD: ED Physician Trae Ellis HPI: 06/02 14:16 This 28 yrs old Black Male presents to ER via Ambulatory with complaints of Chest Pain. sp3 14:16 28-year-old male with history of hypertension and prior pectoralis muscle tear presents sp3 to the ED with chief complaint chest pain since this morning similar to his prior episode. He denies headache, shortness of breath, back pain, abdominal pain, vomit, diarrhea, syncope, near syncope, numbness or tingling, or any other signs or symptoms on ROS at this time. He also denies trauma. He did lift but states it was mild in nature due to his prior injury.. Historical: - Allergies: 12:38 NKDA; tm6 - PMHx: 12:38 Hypertensive disorder; tm6 - PSHx: 12:38 None; tm6 - Immunization history:: Flu vaccine is not up to date. - Infectious Disease History:: Denies. - Social history:: Smoking status: Reported history of juuling and/or vaping. ROS: 14:17 Constitutional: Negative for fever, chills, and weight loss, Eyes: Negative for injury, sp3 pain, redness, and discharge, Neck: Negative for injury, pain, and swelling, Respiratory: Negative for shortness of breath, cough, wheezing, and pleuritic chest pain, Abdomen/GI: Negative for abdominal pain, nausea, vomiting, diarrhea, and constipation, Back: Negative for injury and pain, Skin: Negative for injury, rash, and discoloration, Neuro: Negative for headache, weakness, numbness, tingling, and seizure, Psych: Negative for depression, anxiety, suicide ideation, homicidal ideation, and hallucinations, Allergy/Immunology: Negative for hives, rash, and allergies, Endocrine: Negative for neck swelling, polydipsia, polyuria, polyphagia, and marked weight changes, Hematologic/Lymphatic: Negative for swollen nodes, abnormal bleeding, and unusual bruising, 14:17 All other systems are negative, Exam: 14:17 Constitutional: This is a well developed, well nourished patient who is awake, alert, sp3 and in no acute distress. Head/Face: Normocephalic, atraumatic. Eyes: Pupils equal round and reactive to light, extra-ocular motions intact. Lids and lashes normal. Conjunctiva and sclera are non-icteric and not injected. Cornea within normal limits. Periorbital areas with no swelling, redness, or edema. Neck: Trachea midline, no thyromegaly or masses palpated, and no cervical lymphadenopathy. Supple, full range of motion without nuchal rigidity, or vertebral point tenderness. No Meningismus. Cardiovascular: Regular rate and rhythm with a normal S1 and S2. No gallops, murmurs, or rubs. Normal PMI, no JVD. No pulse deficits. Respiratory: Lungs have equal breath sounds bilaterally, clear to auscultation and percussion. No rales, rhonchi or wheezes noted. No increased work of breathing, no retractions or nasal flaring. Abdomen/GI: Soft, non-tender, with normal bowel sounds. No distension or tympany. No guarding or rebound. No evidence of tenderness throughout. Back: No spinal tenderness. No costovertebral tenderness. Full range of motion. Skin: Warm, dry with normal turgor. Normal color with no rashes, no lesions, and no evidence of cellulitis. MS/ Extremity: Pulses equal, no cyanosis. Neurovascular intact. Full, normal range of motion. Neuro: Awake and alert, GCS 15, oriented to person, place, time, and situation. Cranial nerves II-XII grossly intact. Motor strength 5/5 in all extremities. Sensory grossly intact. Cerebellar exam normal. Normal gait. Psych: Awake, alert, with orientation to person, place and time. Behavior, mood, and affect are within normal limits. 14:17 Chest/axilla: Mild pain to palpation anterior chest. 14:20 ECG was reviewed by the Attending Physician. EKG demonstrates normal sinus rhythm at 60 sp3 bpm with normal intervals, normal QRS, normal axis, nonspecific diffuse ST/T changes without evidence of acute ischemia. Vital Signs: 12:36 BP 136 / 79; Pulse 55; Resp 17; Temp 96.7(TE); Pulse Ox 100% on R/A; MAP 95 mmHg; tm6 Weight 113.4 kg; Height 5 ft. 7 in. ; Pain 10/31; 12:36 Body Mass Index 39.16 (113.40 kg, 170.18 cm) tm6 12:36 Pain Scale: Adult tm6 MDM: 12:44 Medical Screening Exam initiated sp3 14:18 Data reviewed: vital signs, nurses notes, EKG, radiologic studies. ED course: sp3 8-year-old male with chest pain. Differential diagnosis includes musculoskeletal versus inflammatory. Low index of suspicion for acute coronary syndrome, PE, TAD, sepsis, shock, GI or other pathology. EKG is normal and chest x-ray is also normal. Will place on anti-inflammatory and safely discharged home.. 06/02 12:44 Order name: XRAY Chest (1 view); Complete Time: 14:08 sp3 06/02 12:44 Order name: EKG - Nurse/Tech; Complete Time: 12:51 sp3 Administered Medications: No medications were administered Disposition Summary: 06/02/24 14:20 Discharge Ordered Notes: Location: Home sp3 Condition: Stable sp3 Diagnosis - Chest pain, chest wall pain sp3 Followup: sp3 - With: Private Physician - When: Upon discharge from the Emergency Department - Reason: Continuance of care Discharge Instructions: - Discharge Summary Sheet sp3 - Nonspecific Chest Pain, Adult sp3 Forms: - Medication Reconciliation Form sp3 - Antibiotic Education sp3 - Prescription Opioid Use sp3 - Patient Portal Instructions sp3 - Leadership Thank You Letter sp3 Prescriptions: - Diclofenac Sodium 75 mg Oral Tablet Sustained Release - take 1 tablet ORAL route 2 times per day; 30 tablet; Refills: 0, Product sp3 Selection Permitted Signatures: Dispatcher [employer] EDTrae Burk MD MD sp3 Negro Rader RN RN tm6
--- NOTE | 2024-06-02 14:21 | ER ---
Nurse's Notes [facility] Name: Herb Bang Age: 28 yrs Sex: Male : 1995 Arrival Date: 06/02/2024 Time: 12:28 Bed 11 Private MD: Diagnosis: Chest pain, chest wall pain Presentation: 06/02 12:37 Chief complaint: Patient states: sternal chest pain started Wednesday morning, comes tm6 and goes. 10/31. Bending over or twisting makes it hurt worse. Coronavirus screen: Client denies travel out of the [place] in the last 14 days. Ebola Screen: Patient negative for fever greater than or equal to 101.5 degrees Fahrenheit, and additional compatible Ebola Virus Disease symptoms Patient denies exposure to infectious person. Patient denies travel to an Ebola-affected area in the 21 days before illness onset. No symptoms or risks identified at this time. Initial Sepsis Screen: Does the patient meet any 2 criteria? No. Patient's initial sepsis screen is negative. Does the patient have a suspected source of infection? No. Patient's initial sepsis screen is negative. Risk Assessment: Do you want to hurt yourself or someone else? Patient reports no desire to harm self or others. Onset of symptoms was May 31, 2024. 12:37 Method Of Arrival: Ambulatory tm6 12:37 Acuity: OBDULIA 3 tm6 Triage Assessment: 12:38 General: Appears in no apparent distress. Behavior is calm, cooperative. Pain: tm6 Complains of pain in mid-sternal area Pain currently is 6 out of 10 on a pain scale. Quality of pain is described as in a knot Pain began 2-3 days ago. Is intermittent. EENT: No signs and/or symptoms were reported regarding the EENT system. Neuro: Level of Consciousness is awake, alert, obeys commands, Oriented to person, place, time, situation. Cardiovascular: Reports chest pain, since Wednesday Patient's skin is warm and dry. Respiratory: Airway is patent Respiratory effort is even, unlabored, Respiratory pattern is regular, symmetrical. GI: No signs and/or symptoms were reported involving the gastrointestinal system. Abdomen is flat, non-distended. : No signs and/or symptoms were reported regarding the genitourinary system. Derm: No signs and/or symptoms reported regarding the dermatologic system. Musculoskeletal: Reports pain in mid-sternal area. Historical: - Allergies: 12:38 NKDA; tm6 - PMHx: 12:38 Hypertensive disorder; tm6 - PSHx: 12:38 None; tm6 - Immunization history:: Flu vaccine is not up to date. - Infectious Disease History:: Denies. - Social history:: Smoking status: Reported history of juuling and/or vaping. Screenin:55 [facility] ED Fall Risk Assessment (Adult) History of falling in the last 3 months, jb4 including since admission No falls in past 3 months (0 pts) Confusion or Disorientation No (0 pts) Intoxicated or Sedated No (0 pts) Impaired Gait No (0 pts) Mobility Assist Device Used No (0 pt) Altered Elimination No (0 pt) Score/Fall Risk Level 0 - 2 = Low Risk Oriented to surroundings, Maintained a safe environment. Abuse screen: Denies threats or abuse. Nutritional screening: No deficits noted. Tuberculosis screening: No symptoms or risk factors identified. Assessment: 12:55 General: Appears in no apparent distress. comfortable, Behavior is calm, cooperative, jb4 appropriate for age. Pain: Complains of pain in mid-sternal area Pain radiates to anterior aspect of right upper chest Pain currently is 6 out of 10 on a pain scale. Neuro: Level of Consciousness is awake, alert, obeys commands, Oriented to person, place, time, situation. Cardiovascular: Patient's skin is warm and dry. Rhythm is sinus bradycardia. Respiratory: Airway is patent Respiratory effort is even, unlabored, Respiratory pattern is regular, symmetrical. Derm: Skin is intact, Skin is pink, warm \T\ dry. Musculoskeletal: Circulation, motion, and sensation intact. Range of motion: intact in all extremities. 14:27 Reassessment: Patient appears in no apparent distress at this time. Patient and/or jb4 family updated on plan of care and expected duration. Pain level reassessed. Patient is alert, oriented x 3, equal unlabored respirations, skin warm/dry/pink. Vital Signs: 12:36 BP 136 / 79; Pulse 55; Resp 17; Temp 96.7(TE); Pulse Ox 100% on R/A; MAP 95 mmHg; tm6 Weight 113.4 kg; Height 5 ft. 7 in. ; Pain 6/10; 12:36 Body Mass Index 39.16 (113.40 kg, 170.18 cm) tm6 12:36 Pain Scale: Adult tm6 ED Course: 12:30 Patient arrived in ED. mr 12:38 Triage completed. tm6 12:38 Arm band placed on right wrist. tm6 12:43 Trae Ellis MD is Attending Physician. sp3 12:54 Edi Garza, RN is Primary Nurse. jb4 12:55 Patient has correct armband on for positive identification. Bed in low position. Call jb4 light in reach. Side rails up X 1. Provided Education on: plan of care. 12:55 No provider procedures requiring assistance completed. Patient maintains SpO2 jb4 saturation greater than 95% on room air. 13:12 XRAY Chest (1 view) In Process Unspecified. EDMS 14:27 Patient did not have IV access during this emergency room visit. jb4 Administered Medications: No medications were administered Medication: 12:55 VIS not applicable for this client. jb4 Outcome: 14:20 Discharge ordered by . sp3 14:27 Discharged to home ambulatory, jb4 14:27 Condition: stable 14:27 Discharge instructions given to patient, Instructed on discharge instructions, follow up and referral plans. no drinking with medication, medication usage, Demonstrated understanding of instructions, follow-up care, medications, 14:28 Patient left the ED. jb4 Signatures: Dispatcher [employer] EDKS Britt Villalobos, Reg Reg mr Edi Garza, RN RN jb4 Trae Ellis MD MD sp3 Negro Rader RN RN tm6
[2024-06-02 14:34] VITALS: BP 136/79; TEMP 96.7; O2SAT 100
--- NOTE | 2024-06-05 10:51 | EKG ---
Test Date: 2024-06-02 Test Time: 12:46:34 [employer]: [employer] MEASUREMENT RESULTS: Intervals: Rate: 57 [place]: 178 QRSD: 100 QT: 390 QTc: 379 [place]: P: 37 [place]: 178 QRS: 91 T: 12 INTERPRETIVE STATEMENTS: Sinus bradycardia Otherwise normal ECG Compared to ECG 10/29/2022 21:39:20 Sinus rhythm no longer present Electronically Signed On 06-05-24 10:49:52 [employer] by Hema Miranda
== END 2024-06-02 14:28 | disposition home or self-care (01) ==
LOC: ER 12:28
DX: R07.89 Other chest pain (principal); I10 Essential (primary) hypertension
CPT/HCPCS: 71045; 93005; 99282